=== PATIENT | female | born 2000 | race African-American/Black ===

== ENCOUNTER 2023-04-20 07:56 | Emergency (ER) | payer OTHER, SELFPAY ==
[2023-04-20 08:02] VITALS: BP 146/94; PULSE 68; RESP 20; TEMP 36.4; O2SAT 100; BMI 29.9
--- NOTE | 2023-04-20 08:23 | ED.ALLEREA ---
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 Patient states she did have a taste last night she was making something for her family. Later she developed rash and itching. She also noticed a little bit of tightness in her throat. She states she took Benadryl last night the rash improve the tightness continued she is able to sleep but felt a little short of breath. She states this morning woke up felt quite tight it has actually been improving time goes by but she has felt a little hoarse. She states she could hear some wheezing she states that has gone away. She denies swelling of her lips tongue, face. She states rash has not reoccurred. Itching has not reoccurred. She denies any nausea or vomiting. She denies any diarrhea constipation, she denies any GI or urinary symptoms otherwise. She states she did also have but are not squash for the 1st time but states she has had blueberries in the past and had swelling of her lips with that. Patient states no daily medications. Does have a Nexplanon in place. Denies any surgeries. No tobacco, occasional alcohol, no recreational drugs. She states she is feeling improved but not completely resolved. She did not take any Benadryl this morning. Related Data Previous Rx's Medication Instructions Recorded epinephrine 0.3 mg/0.3 mL 0.3 mg (0.3 mL) IM Q5-15M PRN 04/20/23 injection, auto-injector (EpiPen anaphylaxis #2 ea 2-Rocky) famotidine 20 mg tablet (Pepcid) 20 mg PO BID 5 days #10 tabs 04/20/23 prednisone 20 mg tablet 40 mg (2 x 20 mg) PO DAILY 5 days 04/20/23 #10 tabs Allergies Allergy/AdvReac Type Severity Reaction Status Date / Time blueberry Allergy Verified 04/20/23 08:02 Review of Systems Review of Systems ROS Unobtainable: All systems reviewed & are unremarkable except as noted in HPI and below Patient History Social History Smoking Status: Never smoker Smoking Status: Never smoker alcohol intake frequency: a few times a week Substance Use Type: does not use Exam Narrative Exam Narrative: GEN: well nourished, well appearing female, alert and oriented x 3, patient appears to be in mild distress. HEENT: Atraumatic, pupils are equal round reactive to light, extraocular movements are intact, nares are clear, there is no conjunctival pallor. Throat is clear without any exudates, erythema, tonsillar enlargement or uvular deviation, no or pharyngeal swelling. Patient has slight hoarseness. No cough, no stridor. No difficulty with secretions. HEART: Regular rate and rhythm without murmur, clicks, rubs. LUNGS:Lungs clear to auscultation, no wheezes, rales, crackles, chest moves symmetrically ABD:bowel sounds normal, soft, non-tender, no guarding, rebound, rigidity, no masses noted, no hepatosplenomegaly MSCL: Non-tender, no muscle atrophy, muscles strength 5/5 upper and lower extremities, full range of motion, normal gait NEURO:CN 2-12 intact, sensation normal SKIN: No rash, erythema, no hives or other changes noted. Initial Vital Signs Initial Vital Signs: Vital Signs Temperature 97.5 F L 04/20/23 08:02 Pulse Rate 68 04/20/23 08:02 Respiratory Rate 20 04/20/23 08:02 Blood Pressure 146/94 H 04/20/23 08:02 Pulse Oximetry 100 04/20/23 08:02 Oxygen Delivery Method Room Air 04/20/23 08:02 Course Orders Ordered: Discontinued Medications Diphenhydramine HCl (Diphenhydramine 25 Mg Tablet) 50 mg PO NOW ONE Stop: 04/20/23 08:23 Last Admin: 04/20/23 09:04 Dose: 50 mg Documented By: TRISH Famotidine (Famotidine 20 Mg Tablet) 20 mg PO NOW ONE Stop: 04/20/23 08:24 Last Admin: 04/20/23 09:03 Dose: 20 mg Documented By: TRISH Prednisone (Prednisone 20 Mg Tablet) 60 mg PO NOW ONE Stop: 04/20/23 08:23 Last Admin: 04/20/23 09:03 Dose: 60 mg Documented By: TRISH Vital Signs Vital signs: Vital Signs - 8 hr 04/20/23 08:02 04/20/23 09:09 04/20/23 09:10 Temperature 97.5 F L Pulse Rate 68 94 H 69 Respiratory Rate 20 Blood Pressure 146/94 H Pulse Oximetry 100 100 100 Oxygen Delivery Method Room Air 04/20/23 09:10 Temperature Pulse Rate Respiratory Rate Blood Pressure 125/80 Pulse Oximetry Oxygen Delivery Method MDM - Allergic Reaction MDM Narrative Medical decision making narrative: [age] old female with what sounds like an allergic reaction somewhat delayed onset. Symptoms started last night she states she actually felt worse this morning when she woke up but is feeling improved at this time but is still slightly hoarse. She called the nurse hotline who told her to come to the ED. She did have exposure to blueberries which has known allergen for the patient. She states symptoms are improving without any intervention this morning she did take Benadryl last night. After discussion with patient she prefers for oral medication. We will give Benadryl, prednisone and Pepcid orally. Did discuss with patient if symptoms are worsening at any point she would receive IM epinephrine and had line. Patient feels mildly improved. States no worsening and feels comfortable with return home. Offered observation for longer time frame. Discharge Plan Departure Patient Disposition: Home Clinical Impression: Allergic reaction Activity Restrictions/Additional Instructions: Follow-up for recheck. Take oral prednisone until completed. Take Pepcid 1 tablet twice daily x 5 days. 1-2 benadryl every 6 hours as needed for symptoms Prescription for EpiPen was sent as well. Use as directed. Prescription sent to [facility] in [place]. Please return for rapidly worsening symptoms increasing or new swelling of your throat, airway, difficulty with breathing or wheezing, chest tightness, persistent vomiting, diarrhea, new rash or skin changes or other new or concerning changes. Prescriptions: New prednisone 20 mg tablet 40 mg PO DAILY 5 Days Qty: 10 0RF famotidine [Pepcid] 20 mg tablet 20 mg PO BID 5 Days Qty: 10 0RF epinephrine [EpiPen 2-Rocky] 0.3 mg/0.3 mL auto-injector 0.3 mg IM Q5-15M PRN (Reason: anaphylaxis) Qty: 2 0RF Rx Instructions: do not exceed 3 doses per episode Stand Alone Forms: Patient Portal/API, Work Release Note
[2023-04-20] MEDS: predniSONE 20 MG TABLET 60 MG PO (09:03)
[2023-04-20] MEDS: FAMOTIDINE 20 MG TABLET PO (09:03)
[2023-04-20] MEDS: diphenhydrAMINE 25 MG TABLET 50 MG PO (09:04)
[2023-04-20 09:09] VITALS: PULSE 94; O2SAT 100
[2023-04-20 09:10] VITALS: BP 125/80; PULSE 69; O2SAT 100
[2023-04-20 09:15] VITALS: PULSE 56; O2SAT 100
[2023-04-20 09:16] VITALS: BP 108/58; PULSE 59; O2SAT 100
[2023-04-20 09:46] VITALS: BP 115/73; PULSE 62; RESP 18; O2SAT 100
== END 2023-04-20 09:47 | disposition home or self-care (01) ==
PROVIDERS: Emergency Provider Emergency Medicine
DX: T78.40XA Allergy, unspecified, initial encounter (principal)
CPT/HCPCS: 99283; A9270